=== PATIENT | female | born 1980 | race African-American/Black ===

== ENCOUNTER 2018-06-17 11:06 | Emergency (ER) | payer SELFPAY ==
[~2018-06-17] VITALS: Ht 167.6 cm; Wt 90.7 kg
[2018-06-17 11:15] VITALS: BP 152/94
[2018-06-17] MEDS ORDERED: ACYCLOVIR 200 MG CAPSULE. PO STA (11:46)
[2018-06-17] MEDS ORDERED: NAPROXEN 500 MG TABLET PO STA (11:46)
[2018-06-17] MEDS ORDERED: CYCLOBENZAPRINE 10 MG TABLET. PO ONE (12:00)
[2018-06-17] MEDS ORDERED: HYDROcodone/APAP 5/325MG 1 TAB TABLET PO ONE (12:00)
[2018-06-17] MEDS ORDERED: NAPR-514 PO (12:25)
[2018-06-17] MEDS ORDERED: PRED50TA PO (12:25)
[2018-06-17] MEDS ORDERED: ACYC800T PO (12:25)
[2018-06-17] MEDS ORDERED: CYCL10TA2 PO (12:25)
--- NOTE | 2018-06-17 12:25 | PHYS DOC ---
Past Medical History Past Medical History: No Pertinent History Past Surgical History: Alcohol Use: None Drug Use: None Adult General Chief Complaint Chief Complaint: LOWER EXT PAIN HPI HPI Patient is a 38 year old female with no significant medical history who presents to the ED today complaining of 9 out of 10 sharp and constant pain radiating from the right low back into the right lower extremity that began a week ago. Patient states the pain is worse when she is sitting. Patient denies any known injury. Patient states she has tried [id number] remedies with no relief. Patient denies any numbness or tingling to bilateral lower extremities, denies any loss of bowel bladder function. She is also complaining of a blister type of rash on her right ventral thigh that began yesterday. Review of Systems Review of Systems Constitutional: Denies fever or chills [] GI: Denies abdominal pain, nausea, vomiting, bloody stools or diarrhea [] : Denies dysuria or hematuria [] Musculoskeletal: Reports right low back pain radiating to the right lower extremity Integument: Reports blisters on the right thigh [] Neurologic: Denies headache, focal weakness or sensory changes [] All other systems were reviewed and found to be within normal limits, except as documented in this note. Current Medications Current Medications Current Medications Medications (Trade) Dose Ordered Sig/Araceli Start Time Stop Time Status Last Admin Dose Admin Acetaminophen/ Hydrocodone Bitart (Lortab 5/325) 2 tab 1X ONCE 06/17/18 12:00 06/17/18 12:01 DC 06/17/18 12:00 2 TAB Acyclovir (Zovirax) 800 mg 1X STAT 06/17/18 11:46 06/17/18 11:48 DC 06/17/18 12:05 800 MG Cyclobenzaprine HCl (Flexeril) 10 mg 1X ONCE 06/17/18 12:00 06/17/18 12:01 DC 06/17/18 12:00 10 MG Naproxen (Naprosyn) 500 mg 1X STAT 06/17/18 11:46 06/17/18 11:48 DC 06/17/18 12:00 500 MG Allergies Allergies Allergies Coded Allergies Type Severity Reaction Last Updated Verified No Known Drug Allergies 06/17/18 No Physical Exam Physical Exam Constitutional: Well developed, well nourished, no acute distress, non-toxic appearance. [] Abdomen: Bowel sounds normal, soft, no tenderness, no masses, no pulsatile masses. [] Skin: Small amount of grouped fluid field blisters on the right ventral thigh consistent with shingles Back: Moderate tenderness on palpation of the right SI joint. Tenderness, no CVA tenderness. [] Extremities: No tenderness, no cyanosis, no clubbing, ROM intact, no edema. [] Neurologic: Alert and oriented X 3, normal motor function, normal sensory function, no focal deficits noted. [] Psychologic: Affect normal, judgement normal, mood normal. [] Current Patient Data Vital Signs Vital Signs Date Time Temp Pulse Resp B/P (MAP) Pulse Ox O2 Delivery O2 Flow Rate FiO2 06/17/18 12:00 18 98 Room Air 06/17/18 11:15 98.2 89 152/94 (113) 98.2 EKG EKG [] Radiology/Procedures Radiology/Procedures [] Course & Med Decision Making Course & Med Decision Making Pertinent Labs and Imaging studies reviewed. (See chart for details) This is a 38-year-old female patient with sciatica and has shingles. Discharged with acyclovir for shingles. Discharged with, Medrol Dosepak cyclobenzaprine and naproxen for care. Follow-up with PCP in 1-2 weeks. Good Disclaimer Yemion Disclaimer This electronic medical record was generated, in whole or in part, using a voice recognition dictation system. Departure Departure Impression: Primary Impression: Sciatica of right side Additional Impression: Thigh shingles Disposition: 01 HOME, SELF-CARE Condition: STABLE Referrals: NO PCP (PCP) Follow-up with your doctor in 1-2 weeks Patient Instructions: Sciatica with [facility], Shingles, [id number] Additional Instructions: You were evaluated in the emergency room and noted to have sciatica and shingles. We put to medications, take them as prescribed. Follow-up with your doctor in 1-2 weeks. Scripts Acyclovir (ACYCLOVIR) 800 Mg Tablet 1 TAB PO 5XDAY, #50 TAB Prov: MUTUNGA,MITUL CONSULTING APPLICATION ENGINEER 06/17/18 Prednisone (PREDNISONE) 50 Mg Tablet 1 TAB PO DAILY, #5 TAB Prov: MUTUNGA,MITUL CONSULTING APPLICATION ENGINEER 19 Naproxen (NAPROXEN) 500 Mg Tablet 1 TAB PO BID, #60 TAB 1 Refill Prov: MITUL KHAN APRN 06/17/18 Cyclobenzaprine Hcl (CYCLOBENZAPRINE HCL) 10 Mg Tablet 1 TAB PO TID, #30 TAB Prov: MITUL KHAN APRN 06/17/18 Problem Qualifiers MITUL KHAN APRN Jun 17, 2018 12:25
== END 2018-06-17 12:50 | disposition home or self-care (01) ==
LOC: ER 11:06
DX: M54.41 Lumbago with sciatica, right side (principal); B02.9 Zoster without complications; Z98.890 Other specified postprocedural states
CPT/HCPCS: 99284

== ENCOUNTER 2018-07-09 09:10 | Emergency (ER) | payer SELFPAY ==
[~2018-07-09] VITALS: Ht 167.6 cm; Wt 90.7 kg
[~2018-07-09 09:10] MED LIST: ACYC800T PO; CYCL10TA2 PO; NAPR-514 PO; PRED50TA PO
[2018-07-09 09:30] VITALS: BP 179/107
[2018-07-09] MEDS ORDERED: KETOROLAC 60 MG/2 ML VIAL. IM ONE (10:00)
[2018-07-09] MEDS ORDERED: MORPHINE SULFATE 10 MG/ML VIAL. SQ ONE (10:00)
[2018-07-09] MEDS ORDERED: DEXAMETHASONE SOD PHOS 20 MG/5 ML VIAL. IM ONE (10:00)
[2018-07-09] MEDS ORDERED: CYCLOBENZAPRINE 10 MG TABLET. PO ONE (10:00)
--- NOTE | 2018-07-09 10:41 | RAD ---
Three-view lumbar spine dated 07/09/2018. COMPARISON:None. Clinical indication: Pain down both legs for 2 to 3 days. No known injury. FINDINGS: 3 views lumbar spine show normal sagittal alignment. Vertebral body heights are maintained. Mild disc space narrowing at L4-L5. Mild endplate hypertrophic changes throughout. Mild to moderate arthrosis lower lumbar apophyseal joints. IMPRESSION: 1. No acute radiographic abnormality. 2. Mild lower lumbar spondylosis. Electronically signed by: Reynalod Ann MD (07/09/2018 10:38 AM) [facility]
[2018-07-09] MEDS ORDERED: ORPH100T PO (11:02)
[2018-07-09] MEDS ORDERED: DICL50TA4 PO (11:02)
--- NOTE | 2018-07-09 11:02 | PHYS DOC ---
Past Medical History Past Medical History: No Pertinent History Past Surgical History: Alcohol Use: None Drug Use: None Adult General Chief Complaint Chief Complaint: BACK PAIN OR INJURY HPI HPI Patient is a 38 year old female who presents to the ED today complaining over 10 out of 10 right low back pain radiating to the right lower extremity that has been going on since last month. Patient states she was seen in the ED on June 17, 2018 for the same complaint, she states she was discharged with naproxen, prednisone for 5 days and cyclobenzaprine. She states she finished the medications, she stated the pain has resumed. Patient denies any known injury. Denies any loss of bowel bladder function. Denies any numbness or tingling to bilateral lower extremities. Denies any generalized weakness. She is up and ambulating. Review of Systems Review of Systems Constitutional: Denies fever or chills [] Musculoskeletal: Reports right low back pain radiating to the right lower extremity Integument: Denies rash or skin lesions [] Neurologic: Denies headache, focal weakness or sensory changes [] All other systems were reviewed and found to be within normal limits, except as documented in this note. Current Medications Current Medications Current Medications Medications (Trade) Dose Ordered Sig/[facility] Start Time Stop Time Status Last Admin Dose Admin Cyclobenzaprine HCl (Flexeril) 10 mg 1X ONCE 07/09/18 10:00 07/09/18 10:08 DC 07/09/18 10:26 10 MG Dexamethasone Sodium Phosphate (Decadron) 10 mg 1X ONCE 07/09/18 10:00 07/09/18 10:08 DC 07/09/18 10:26 10 MG Ketorolac Tromethamine (Toradol Im) 60 mg 1X ONCE 07/09/18 10:00 07/09/18 10:08 DC 07/09/18 10:27 60 MG Morphine Sulfate (Morphine Sulfate) 10 mg 1X ONCE 07/09/18 10:00 07/09/18 10:08 DC 07/09/18 10:26 10 MG Allergies Allergies Allergies Coded Allergies Type Severity Reaction Last Updated Verified No Known Drug Allergies 06/17/18 No Physical Exam Physical Exam Constitutional: Well developed, well nourished, no acute distress, non-toxic appearance. [] Abdomen: Bowel sounds normal, soft, no tenderness, no masses, no pulsatile masses. [] Skin: Warm, dry, no erythema, no rash. [] Back: Mild tenderness on palpation of the SI joint on the right side, no midline lumbar spine tenderness, no CVA tenderness. Positive right leg straight raises Extremities: No tenderness, no cyanosis, no clubbing, ROM intact, no edema. [] Neurologic: Alert and oriented X 3, normal motor function, normal sensory function, no focal deficits noted. [] Psychologic: Affect normal, judgement normal, mood normal. [] Current Patient Data Vital Signs Vital Signs Date Time Temp Pulse Resp B/P (MAP) Pulse Ox O2 Delivery O2 Flow Rate FiO2 07/09/18 09:30 98.6 96 18 179/107 (131) 98 Room Air 98.6 EKG EKG [] Radiology/Procedures Radiology/Procedures []PROCEDURE: LUMBAR SPINE 2-3V Three-view lumbar spine dated 07/09/2018. COMPARISON:None. Clinical indication: Pain down both legs for 2 to 3 days. No known injury. FINDINGS: 3 views lumbar spine show normal sagittal alignment. Vertebral body heights are maintained. Mild disc space narrowing at L4-L5. Mild endplate hypertrophic changes throughout. Mild to moderate arthrosis lower lumbar apophyseal joints. IMPRESSION: 1. No acute radiographic abnormality. 2. Mild lower lumbar spondylosis. Electronically signed by: Alice Ann MD (07/09/2018 10:38 AM) [facility] DICTATED and SIGNED BY: ALICE ANN MD DATE: 07/09/18 1038 Course & Med Decision Making Course & Med Decision Making Pertinent Labs and Imaging studies reviewed. (See chart for details) This is a 38-year-old female patient presenting to the ED today with sciatic back pain. No known injury. She was seen in the ED on June 17, 2018 for the same complaint. Lumbar spine x-rays today were negative for any acute findings. Patient was discharged in stable and Norflex and diclofenac. Instructed to follow-up with the pain clinic. She states she does not have any medical insurance. Provided clinic list for follow-up. Dragon Disclaimer Dragon Disclaimer This electronic medical record was generated, in whole or in part, using a voice recognition dictation system. Departure Departure Impression: Primary Impression: Sciatica of right side Disposition: HOME, SELF-CARE Condition: STABLE Referrals: NO PCP (PCP) REBEKA SAHU MD follow up in 1-2 weeks Patient Instructions: Sciatica, [id number] Additional Instructions: You were elevated in the emergency room for sciatic back pain. Please follow-up with a doctor from the list provided. We also provided you a pain clinic doctor , you need to follow-up with them. Scripts Diclofenac Sodium (DICLOFENAC SODIUM) 50 Mg Tablet.dr 1 TAB PO BID, #60 TAB 0 Refills Prov: MITUL KHAN APRN 07/09/18 Orphenadrine Citrate (ORPHENADRINE CITRATE) 100 Mg Tablet.er 1 TAB PO BID, #60 TAB Prov: MITUL KHAN APRN 07/09/18 MITUL KHAN APRN Jul 09, 2018 11:02
== END 2018-07-09 11:08 | disposition home or self-care (01) ==
LOC: ER 09:10
DX: M54.41 Lumbago with sciatica, right side (principal); Z98.890 Other specified postprocedural states
CPT/HCPCS: 72100; 96372; 99283; J1100; J1885; J2270

== ENCOUNTER 2020-02-08 12:51 | Emergency (ER) | payer OTHER ==
[~2020-02-08] VITALS: Ht 167.6 cm; Wt 100.0 kg
[~2020-02-08 12:51] MED LIST changes: +DICL50TA4 PO; +ORPH100T PO
[2020-02-08 13:14] VITALS: BP 113/86
[2020-02-08] MEDS ORDERED: DIPH,PERTUSS(ACELL),TET VAC/PF 0.5 ML SYRINGE. VAX IM ONE (14:00)
[2020-02-08] MEDS ORDERED: SURGICEL HEMOSTAT 4X8 EACH. TP ONE (14:15)
[2020-02-08] MEDS ORDERED: HYDROcodone/APAP 5/325MG 1 TAB TABLET PO ONE (14:15)
[2020-02-08] MEDS ORDERED: LIDOCAINE 1%/EPI 1:100,000 20 ML VIAL. INJ ONE (14:15)
--- NOTE | 2020-02-08 14:51 | PHYS DOC ---
Past Medical History Past Medical History: No Pertinent History Past Surgical History: Smoking Status: Current Every Day Smoker Alcohol Use: Occasionally Drug Use: None General Adult EDM: Chief Complaint: FINGER INJURY HPI: HPI: Patient is a 39 year old female who presents with was at work cutting greens when the knife cut her left pad of her left index finger. Patient states she is unaware if she is up-to-date on her tetanus shot. She rates her pain a 10 out of 10 states is burning. Patient has a history of a and smoking. Review of Systems: Review of Systems: Constitutional: Denies fever or chills. [] Eyes: Denies change in visual acuity. [] HENT: Denies nasal congestion or sore throat. [] Respiratory: Denies cough or shortness of breath. [] Cardiovascular: Denies chest pain or edema. [] GI: Denies abdominal pain, nausea, vomiting, bloody stools or diarrhea. [] : Denies dysuria. [] Musculoskeletal: Denies back pain or joint pain. +Left index finger [] Integument: Denies rash. +Left index pad of finger laceration [] Neurologic: Denies headache, focal weakness or sensory changes. [] Endocrine: Denies polyuria or polydipsia. [] Lymphatic: Denies swollen glands. [] Psychiatric: Denies depression or anxiety. [] Heart Score: Risk Factors: Risk Factors: DM, Current or recent (<one month) smoker, HTN, HLP, family history of CAD, obesity. Risk Scores: Score 0 - 3: 2.5% MACE over next 6 weeks - Discharge Home Score 4 - 6: 20.3% MACE over next 6 weeks - Admit for Clinical Observation Score 7 - 10: 72.7% MACE over next 6 weeks - Early Invasive Strategies Current Medications: Current Medications Medications (Trade) Dose Ordered Sig/Araceli Start Time Stop Time Status Last Admin Dose Admin Acetaminophen/ Hydrocodone Bitart (Lortab 5/325) 1 tab 1X ONCE 02/08/20 14:15 02/08/20 14:16 DC 02/08/20 14:26 1 TAB Cellulose (Surgicel Hemostat 4x8) 1 each 1X ONCE 02/08/20 14:15 02/08/20 14:16 DC Diphtheria/ Tetanus/Acell Pertussis (ADACEL TDap SYRINGE) 0.5 ml ONCE ONCE 02/08/20 14:00 02/08/20 14:01 DC 02/08/20 14:26 0.5 ML Lidocaine/ Epinephrine (LIDOCAINE 1%-EPI 1:100,000 Multi-Dose) 20 ml 1X ONCE 02/08/20 14:15 02/08/20 14:16 DC 02/08/20 14:26 20 ML Allergies: Allergies: Allergies Coded Allergies Type Severity Reaction Last Updated Verified No Known Drug Allergies 06/17/18 No Physical Exam: PE: Constitutional: Well developed, well nourished, no acute distress, non-toxic appearance. [] HENT: Normocephalic, atraumatic, bilateral external ears normal, oropharynx moist, no oral exudates, nose normal. [] Eyes: PERRLA, EOMI, conjunctiva normal, no discharge. [] Neck: Normal range of motion, no tenderness, supple, no stridor. [] Cardiovascular:Heart rate regular rhythm, no murmur [] Lungs & Thorax: Bilateral breath sounds clear to auscultation [] Abdomen: Bowel sounds normal, soft, no tenderness, no masses, no pulsatile masses. [] Skin: Warm, dry, no erythema, no rash. Left index pad of finger laceration [] Back: No tenderness, no CVA tenderness. [] Extremities: No tenderness, no cyanosis, no clubbing, ROM intact, no edema. [] Neurologic: Alert and oriented X 3, normal motor function, normal sensory function, no focal deficits noted. [] Psychologic: Affect normal, judgement normal, mood normal. [] Current Patient Data: Vital Signs: Vital Signs Date Time Temp Pulse Resp B/P (MAP) Pulse Ox O2 Delivery O2 Flow Rate FiO2 02/08/20 14:26 16 99 Room Air 02/08/20 13:14 98.0 81 113/86 (95) 98.0 EKG: EKG: [] Radiology/Procedures: Radiology/Procedures: [] Course & Med Decision Making: Course & Med Decision Making Pertinent Labs and Imaging studies reviewed. (See chart for details) See HPI. No joint deformity and she can bend at all joints and there is no joint laxities. The cut did not extend over joints. The knife went in sideways so is a deep avulsion and the skin edges are together and approximated. Bleeding stopped with pressure. There is no gaping open wound. Laceration did not injure nailbed. Patient is given a tetanus shot in the ED. She is given No rco in the ED. Laceration repair Location: Left index pad of finger 1 cm Local anesthesia: None needed Interrupted sutures/Internal sutures: Dermabond and Steri-Strips Nerve/ligament/muscle damage: None Cleaning and irrigation: Chlorhexidine and saline and there were no foreign bodies seen The appropriate timeout was taken. The area was prepped and draped in the usual sterile fashion. The wound was copiously irrigated with normal saline and chlorhexidine. Patient tolerated well without complication. Dressing was applied to the area follow-up education is given to observe for signs and symptoms of infection, bleeding and to follow-up promptly if these occur. Patient can return in 48 hours for a wound recheck. Sutures to be removed in 7 to 10 days. [] Dragon Disclaimer: Dragon Disclaimer: This electronic medical record was generated, in whole or in part, using a voice recognition dictation system. Departure Departure Impression: Primary Impression: Laceration Disposition: 01 DC HOME SELF CARE/HOMELESS Condition: STABLE Referrals: NO PCP (PCP) Patient Instructions: Finger Avulsion Additional Instructions: Wash dishes or keep your finger submerged in water for the next 10 days. Do not apply any ointments or lotions over the glue as this will break down the glue. Take ibuprofen for your pain. Ice and elevation. Keep clean and covered. Watch for signs of infection. Follow-up with primary care if needed. MELISSA MONIQUE APRN Feb 08, 2020 14:51
== END 2020-02-08 15:00 | disposition home or self-care (01) ==
LOC: ER 12:51
DX: S61.211A Laceration without foreign body of left index finger without damage to nail, initial encounter (principal); R20.8 Other disturbances of skin sensation; F17.200 Nicotine dependence, unspecified, uncomplicated; Z98.890 Other specified postprocedural states; W26.0XXA Contact with knife, initial encounter; Y93.89 Activity, other specified; Y92.89 Other specified places as the place of occurrence of the external cause; Y99.8 Other external cause status
CPT/HCPCS: 12001; 90471; 90715; 99283; J3490